=== PATIENT | male | born 1990 ===

== ENCOUNTER 2018-01-06 13:16 | Emergency (ER) | payer BC, OTHER ==
[2018-01-06 13:35] VITALS: BP 142/77; PULSE 75; RESP 20; TEMP 99.2; O2SAT 96
--- NOTE | 2018-01-06 14:40 | ED PDOC ---
Lower Extremity Pain/Injury Time Seen by Provider: 01/06/18 13:46 Chief Complaint (Nursing): Lower Extremity Problem/Injury Chief Complaint (Provider): Left Foot Pain History Per: Patient History/Exam Limitations: no limitations Onset/Duration Of Symptoms: Days (1) Current Symptoms Are (Timing): Still Present Additional Complaint(s): 27 year old male presents to the ER for an evaluation of foot pain. Patient states he tripped down the stairs yesterday. Patient notes of swelling on mid- foot. He reports he did no go to work and came to the ER. Past Medical History Reviewed: Historical Data, Nursing Documentation, Vital Signs Vital Signs: Last Vital Signs Temp 99.2 F 01/06/18 13:33 Pulse 75 01/06/18 13:33 Resp 20 01/06/18 13:33 BP 142/77 01/06/18 13:33 Pulse Ox 96 01/06/18 13:33 - Medical History PMH: No Chronic Diseases - Family History Family History: States: Unknown Family Hx - Social History Current smoker - smoking cessation education provided: Yes (Current Some Days Smoker) Alcohol: Social Drugs: Cannabis - Allergies Allergies/Adverse Reactions: Allergies Allergy/AdvReac Type Severity Reaction Status Date / Time No Known Allergies Allergy Verified 01/06/18 13:33 Review of Systems ROS Statement: Except As Marked, All Systems Reviewed And Found Negative Constitutional: Negative for: Fever, Chills Musculoskeletal: Positive for: Foot Pain (left) Physical Exam - Reviewed Nursing Documentation Reviewed: Yes Vital Signs Reviewed: Yes - Physical Exam Appears: Positive for: Non-toxic, No Acute Distress Head Exam: Positive for: ATRAUMATIC, NORMAL INSPECTION, NORMOCEPHALIC Skin: Positive for: Normal Color, Warm, Dry. Negative for: Rash Pulses-Dorsalis Pedis (L): 2+ Pulses-Dorsalis Pedis (R): 2+ Extremity: Positive for: Normal ROM. Negative for: Tenderness, Deformity Neurologic/Psych: Positive for: Alert (x3), Oriented. Negative for: Motor/Sensory Deficits - ECG O2 Sat by Pulse Oximetry: 96 (RA) Pulse Ox Interpretation: Normal Medical Decision Making Medical Decision Making: Time: 1346 Initial Plan: Ibuprofen 600mg Left Foot 3 Views [RAD] Reevaluation Patient refused x-ray stating he does not want additional bills. Discussed AMA with patient. Scribe Attestation: Documented by Elena Monsivais, acting as a scribe for Rosio Cabrera PA-C Provider Scribe Attestation: All medical record entries made by the Scribe were at my direction and personally dictated by me. I have reviewed the chart and agree that the record accurately reflects my personal performance of the history, physical exam, medical decision making, and the department course for this patient. I have also personally directed, reviewed, and agree with the discharge instructions and disposition. Disposition - Clinical Impression Clinical Impression: Foot injury - Patient ED Disposition Is Patient to be Admitted: No - Disposition Disposition: Against Medical Advice Disposition Time: 14:33 Condition: FAIR Forms: [employer] (Thai), [facility] ED School/Work Excuse
== END 2018-01-06 14:30 | disposition left against medical advice (07) ==
LOC: H.ER 13:16
DX: S99.922A Unspecified injury of left foot, initial encounter (principal); W10.9XXA Fall (on) (from) unspecified stairs and steps, initial encounter; F17.200 Nicotine dependence, unspecified, uncomplicated

== ENCOUNTER 2018-04-07 16:16 | Emergency (ER) | payer OTHER, SELFPAY ==
[2018-04-07 19:00] LABS: BASO % 0.4 % (0.0-2.0); EOS # 0.1 K/uL (0.0-0.7); EOS % 1.3 % (0.0-4.0); HEMOGLOBIN 14.3 g/dL (12.0-18.0); LYMPH % 32.2 % (20.0-40.0); MEAN CORPUSCULAR HEMOGLOBIN 30.7 pg (27.0-31.0); MONO # 0.5 K/uL (0.0-0.8); MONO % 7.6 % (0.0-10.0); NEUT # 3.6 K/uL (1.8-7.0); NEUT % 58.5 % (50.0-75.0); NRBC % 0.1 % (0.0-0.0); RBC 4.67 Mil/uL (4.40-5.90); WHITE BLOOD COUNT 6.2 K/uL (4.8-10.8)
[2018-04-07 19:10] LABS: ALB/GLOB RATIO 1.4 (1.0-2.1); ALBUMIN 4.2 g/dL (3.5-5.0); ALT/SGPT 35 U/L (21-72); AST/SGOT 22 U/L (17-59); BLOOD UREA NITROGEN 12 mg/dl (9-20); CALCIUM 9.5 mg/dL (8.4-10.2); GFR NON-AFRICAN AMERICAN > 60; LIPASE 23 U/L (23-300)
--- NOTE | 2018-04-07 19:17 | ED PDOC ---
HPI: Abdomen Time Seen by Provider: 04/07/18 17:50 Chief Complaint (Nursing): Male Genitourinary History Per: Patient Additional Complaint(s): Pt. states for the past week he's had crampy LLQ abdominal pain. Reports symptoms are associated with non-bloody watery diarrhea. Denies N/V, fever, dysuria, hematuria, trauma, previous abdominal surgery. Against Medical Advice - AMA Patient Left Against Medical Advice: The patient declines CT abd/pelvis and wishes to leave the Emergency Department. This action is against my medical advice. This decision was made with informed refusal. The patient was told that CT is necessary. Explanation of the reasons why were discussed. The risks of leaving were explained to the patient and include, but are not limited to, worsening of known or currently unknown conditions, permanent disability and from undiagnosed or untreated conditions. The patient has the capacity to make this informed decision and understands my explanation of the current medical problem and risks of leaving. The patient voluntarily accepts these risks and signed an AMA form documenting our conversation. The patient was given the opportunity to ask questions and reconsider. The patient was encouraged to return to the Emergency Department at any time for further care. 04/08/18 23:42 Past Medical History Reviewed: Historical Data, Nursing Documentation, Vital Signs Vital Signs: Last Vital Signs Temp 98.8 F 04/07/18 17:05 Pulse 74 04/07/18 17:05 Resp 18 04/07/18 17:05 BP 162/92 H 04/07/18 17:05 Pulse Ox 99 04/07/18 17:05 - Medical History PMH: No Chronic Diseases - Surgical History Surgical History: No Surg Hx - Family History Family History: States: No Known Family Hx - Allergies Allergies/Adverse Reactions: Allergies Allergy/AdvReac Type Severity Reaction Status Date / Time No Known Allergies Allergy Verified 01/06/18 13:33 Review of Systems ROS Statement: Except As Marked, All Systems Reviewed And Found Negative Gastrointestinal: Positive for: Abdominal Pain, Diarrhea. Negative for: Melena, Hematochezia Physical Exam - Physical Exam Appears: Positive for: Well, Non-toxic, No Acute Distress Skin: Positive for: Normal Color, Warm. Negative for: Rash Eye Exam: Positive for: Normal appearance Cardiovascular/Chest: Positive for: Regular Rate, Rhythm Respiratory: Positive for: Normal Breath Sounds Gastrointestinal/Abdominal: Positive for: Normal Exam, Bowel Sounds, Soft. Negative for: Tenderness, Distended, Guarding Back: Positive for: Normal Inspection. Negative for: L CVA Tenderness, R CVA Tenderness Neurologic/Psych: Positive for: Alert, Oriented (x3) - Laboratory Results Result Diagrams: 04/07/18 18:30 04/07/18 18:30 Lab Results: Total Bilirubin 0.3 mg/dl (0.2-1.3) 04/07/18 18:30 AST 22 U/L (17-59) 04/07/18 18:30 ALT 35 U/L (21-72) 04/07/18 18:30 Alkaline Phosphatase 59 U/L (38-126) 04/07/18 18:30 Total Protein 7.2 G/DL (6.3-8.2) 04/07/18 18:30 Albumin 4.2 g/dL (3.5-5.0) 04/07/18 18:30 Globulin 3.0 gm/dL (2.2-3.9) 04/07/18 18:30 Albumin/Globulin Ratio 1.4 (1.0-2.1) 04/07/18 18:30 Lipase 23 U/L (23-300) 04/07/18 18:30 - ECG O2 Sat by Pulse Oximetry: 99 - Progress ED Course And Treament: Labs, bentyl 20mg PO, IV NS bolus x 1 ordered. Disposition - Clinical Impression Clinical Impression: Abdominal pain, Hematuria, Left against medical advice - Patient ED Disposition Is Patient to be Admitted: No - Disposition Disposition: Against Medical Advice Disposition Time: 20:09 Condition: FAIR Instructions: Leaving Against Medical Advice Forms: [employer] (Romansh), [facility] ED School/Work Excuse Print Language: [id number]
[2018-04-07 19:23] LABS: URINE AMORPHOUS SEDIMENT RARE /ul (<OCC); URINE BACTERIA RARE (<OCC); URINE BILIRUBIN NEGATIVE (NEGATIVE); URINE BLOOD SMALL (NEGATIVE); URINE CLARITY CLOUDY (Clear); URINE COLOR YELLOW (YELLOW); URINE GLUCOSE (UA) NEG (NEGATIVE); URINE LEUKOCYTE ESTERASE NEG Leu/uL (Negative); URINE PROTEIN NEGATIVE (NEGATIVE); URINE UROBILINOGEN 0.2-1.0 mg/dL (0.2-1.0)
[2018-04-07 21:22] VITALS: BP 127/56; PULSE 86; RESP 16; TEMP 98.3
[2018-04-08 23:43] VITALS: O2SAT 99
== END 2018-04-07 20:21 | disposition home or self-care (01) ==
LOC: H.ER 16:16
DX: R10.32 Left lower quadrant pain (principal); R31.9 Hematuria, unspecified